=== PATIENT | female | born 1965 | race Caucasian/White ===

== ENCOUNTER 2018-05-01 12:22 | Emergency (ER) | payer OTHER ==
[~2018-05-01] VITALS: Ht 162.6 cm; Wt 69.6 kg
[~2018-05-01 12:22] MED LIST: CIPR-255 PO; MULT-506 PO; S-AD1TAB6 PO
[2018-05-01 12:31] VITALS: TEMP 36.6; Ht 162.6 cm; Wt 69.6 kg
[2018-05-01] MEDS ORDERED: FAMOTIDINE 20MG/5ML IV PUSH IV STA (12:48)
[2018-05-01] MEDS ORDERED: ONDANSETRON INJ 2 MG/ML 2 ML VIAL IV STA (12:48)
[2018-05-01] MEDS ORDERED: SODIUM CHLORIDE 0.9% 1000ML 1,000 ML IV STA (12:48)
[2018-05-01 13:03] LABS: BASO % 0.1 %; BASO ABS # 0.01 K/uL (0-0.2); EOS % 1.2 %; HEMATOCRIT 38.6 % (37-47); HEMOGLOBIN 12.9 g/dL (12.0-16.0); IG# 0.01 K/uL (0.00-0.02); MEAN CELL VOLUME 95.1 fL (80-100); MEAN CORPUSCULAR HEMOGLOBIN 31.8 pg (25-34); MEAN CORPUSCULAR HGB CONC 33.4 g/dl (32-36); MEAN PLATELET VOLUME 9.8 fL (7.4-10.4); MONO % 8.7 %; MONO ABS # 0.75 K/uL (0.11-0.59); NEUT % 67.9 %; NEUT ABS # 5.87 K/uL (1.4-6.5); PLATELET COUNT 289 K/uL (130-400); RED CELL DISTRIBUTION WIDTH CV 13.5 % (11.5-14.5); RED CELL DISTRIBUTION WIDTH SD 46.9 fL (36.4-46.3); WHITE BLOOD COUNT 8.64 K/uL (4.8-10.8)
[2018-05-01 13:43] LABS: ALBUMIN 3.9 gm/dl (3.4-5.0); CALCIUM 9.2 mg/dl (8.5-10.1); CREATININE 0.88 mg/dl (0.60-1.20); POTASSIUM 4.2 mmol/L (3.5-5.1); TOTAL PROTEIN 7.2 gm/dl (6.4-8.2)
[2018-05-01] MEDS ORDERED: GLUC10007 PO (14:02)
[2018-05-01] MEDS ORDERED: OPTIRAY 320 IV PRN (14:45)
--- NOTE | 2018-05-01 16:10 | DIAGNOSTIC IMAGING REPORT ---
ABD/PELVIS IV AND ORAL CONT CT DOSE: 500.75 mGycm HISTORY: Pain ABDOMINAL PAIN/GI TECHNIQUE: Multiaxial CT images of the abdomen and pelvis were performed following the use of intravenous and oral contrast. A dose lowering technique was utilized adhering to the principles of ALARA. COMPARISON STUDY: 04/21/2015 FINDINGS: Chronic fibrotic scarring and bibasilar atelectatic change. Liver spleen and pancreas are uniform. Kidneys negative for hydronephrosis. Gallbladder is negative for distention. Bowel pattern suggests several slightly distended fluid-filled loops of small bowel. There is circumferential wall thickening of the distal aspect of the ileum/terminal ileum. There is trace amount of infiltrative changes surrounding fat. Visualized components of the appendix are unremarkable. No evidence for abscess collection or obstruction. IMPRESSION: 1. Circumferential wall thickening of the distal and terminal ileum with mild infiltrative change in adjacent fat. 2. Moderate reactive ileus. 3. Appearance suggests a nonspecific enteritis versus small bowel inflammatory change. 4. Visualized components of the appendix are unremarkable. The above report was generated using voice recognition software. It may contain grammatical, syntax or spelling errors. Electronically signed by: Wojciech Saavedra M.D. 05/01/2018 4:09 PM Dictated Date/Time: 05/01/2018 4:01 PM
[2018-05-01 16:57] VITALS: BP 127/75; PULSE 60; O2SAT 97
--- NOTE | 2018-05-01 19:57 | EMERGENCY ROOM VISIT NOTE ---
History First contact with patient: 12:35 Chief Complaint: ABDOMINAL PAIN Stated Complaint: STOMACH PAIN History of Present Illness The patient is a 52 year old female who presents to the Emergency Room with complaints of generalized epigastric pain radiating downward into the central and lower abdominal region. The patient reports that her pain started around 7 AM this morning, and reports that it is worsening. She reports that the pain comes in waves. She has had mild nausea without vomiting. The patient reports that she had a bowel obstruction 3 years ago. She was admitted to our facility , and did not require any surgical intervention. Shortly after her discharge, she did have a colonoscopy that was normal. The patient has had no abdominal pain since her admission. The patient reports that she has been increasing vegetables in her diet lately. She does report a moderate amount of alcohol consumption 2 days ago. She denies any significant caffeine or NSAIDs use, drinking at most 1 cup of coffee daily. She did take some ibuprofen last night because of her pain without any relief. The patient has not had any recent change in color or appearance of her stools. She denies any urinary symptoms. The pain does not radiate into the back, chest, shoulder or neck. She denies any chest pain or shortness of breath. She has no alleviating or aggravating factors for her pain, and rates her discomfort a 6 out of 10. Review of Systems HEENT: Denies dizziness, visual problems, hearing loss, tinnitus. Denies difficulty swallowing or oral lesions. PULMONARY: Denies cough, shortness of breath, sputum production or hemoptysis. CARDIOVASCULAR: Denies chest pain, palpitations, dyspnea on exertion, orthopnea or peripheral edema. GASTROINTESTINAL: Denies diarrhea, constipation or vomiting, otherwise see HPI. GENITOURINARY: Denies dysuria, frequency, urgency or nocturia. NEUROLOGIC: Denies history of epilepsy, CVA, TIA or chronic headaches. MUSCULOSKELETAL: Denies history of joint tenderness/swelling. SKIN: Denies rashes or lesions. PSYCHIATRIC: Denies history of depression or mental illness. ENDOCRINE: Denies history of diabetes or thyroid disorders. Past Medical/Surgical History Medical Problems: (1) No Known Active Medical Problems Family History FH: cancer FH: heart disease FH: lung disease FHx: diabetes mellitus FHx: diverticulitis Social History Smoking Status: Current Some Day Smoker Alcohol Use: occasionally Marital Status: Housing Status: lives with significant other Occupation Status: employed Current/Historical Medications Scheduled Glucosamine Sulfate (Glucosamine), 1,000 MG PO QD Multivitamin (Multivitamin), 1 TAB PO DAILY Physical Exam Vital Signs Date Time Temp Pulse Resp B/P (MAP) Pulse Ox O2 Delivery O2 Flow Rate FiO2 05/01/18 16:57 60 18 127/75 97 05/01/18 15:29 62 18 98/54 96 Room Air 05/01/18 14:05 60 20 107/57 100 Room Air 05/01/18 12:31 36.6 96 22 108/77 98 Room Air Physical Exam CONSTITUTIONAL: Healthy and well nourished. Alert and oriented X 3 with positive affect. Patient does not appear in any acute distress on exam. HEENT: Normocephalic, atraumatic. Pupils equal, round and reactive. No scleral icterus or conjunctival injection/pallor. NECK: Full active range of motion without discomfort. No JVD or carotid bruits. RESPIRATORY: Clear to auscultation bilaterally with no wheezing, crackles, rhonchi or stridor. CARDIOVASCULAR: Regular rate and rhythm with no murmurs, rubs or gallops. GASTROINTESTINAL: Bowel sounds present in all quadrants. Patient has mild epigastric tenderness to palpation. Negative Treadwell sign. No obvious hepatosplenomegaly. No abdominal rigidity, guarding or rebound. Negative McBurney's point tenderness. No focal left lower quadrant tenderness to palpation. Negative CVA tenderness. MUSCULOSKELETAL: Full range of motion of all joints without discomfort. INTEGUMENTARY: No rash or other significant dermatologic conditions noted. HEMATOLOGIC: No ecchymosis or petechiae noted. NEUROLOGIC: No focal neurologic deficits noted. Medical Decision & Procedures ER Provider Diagnostic Interpretation: Enhanced CT of the abdomen and pelvis shows an enteritis without evidence for obstruction. Radiologist report is as follows: ABD/PELVIS IV AND ORAL CONT CT DOSE: 500.75 mGycm HISTORY: Pain ABDOMINAL PAIN/GI TECHNIQUE: Multiaxial CT images of the abdomen and pelvis were performed following the use of intravenous and oral contrast. A dose lowering technique was utilized adhering to the principles of ALARA. COMPARISON STUDY: 04/21/2015 FINDINGS: Chronic fibrotic scarring and bibasilar atelectatic change. Liver spleen and pancreas are uniform. Kidneys negative for hydronephrosis. Gallbladder is negative for distention. Bowel pattern suggests several slightly distended fluid-filled loops of small bowel. There is circumferential wall thickening of the distal aspect of the ileum/terminal ileum. There is trace amount of infiltrative changes surrounding fat. Visualized components of the appendix are unremarkable. No evidence for abscess collection or obstruction. IMPRESSION: 1. Circumferential wall thickening of the distal and terminal ileum with mild infiltrative change in adjacent fat. 2. Moderate reactive ileus. 3. Appearance suggests a nonspecific enteritis versus small bowel inflammatory change. 4. Visualized components of the appendix are unremarkable. Laboratory Results 05/01/18 12:55 Red Blood Count 4.06, Mean Corpuscular Volume 95.1, Mean Corpuscular Hemoglobin 31.8, Mean Corpuscular Hemoglobin Concent 33.4, Mean Platelet Volume 9.8, Neutrophils (%) (Auto) 67.9, Lymphocytes (%) (Auto) 22.0, Monocytes (%) (Auto) 8.7, Eosinophils (%) (Auto) 1.2, Basophils (%) (Auto) 0.1, Neutrophils # (Auto) 5.87, Lymphocytes # (Auto) 1.90, Monocytes # (Auto) 0.75, Eosinophils # (Auto) 0.10, Basophils # (Auto) 0.01 05/01/18 12:55 Test 05/01/18 12:40 05/01/18 12:55 Urine Color YELLOW Urine Appearance CLEAR (CLEAR) Urine pH 5.0 (4.5-7.5) Urine Specific [place] 1.008 (1.000-1.030) Urine Protein NEG (NEG) Urine Glucose (UA) NEG (NEG) Urine Ketones NEG (NEG) Urine Occult Blood NEG (NEG) Urine Nitrite NEG (NEG) Urine Bilirubin NEG (NEG) Urine Urobilinogen NEG (NEG) Urine Leukocyte Esterase NEG (NEG) White Blood Count 8.64 K/uL (4.8-10.8) Red Blood Count 4.06 M/uL (4.2-5.4) Hemoglobin 12.9 g/dL (12.0-16.0) Hematocrit 38.6 % (37-47) Mean Corpuscular Volume 95.1 fL (80-100) Mean Corpuscular Hemoglobin 31.8 pg (25-34) Mean Corpuscular Hemoglobin Concent 33.4 g/dl (32-36) Platelet Count 289 K/uL (130-400) Mean Platelet Volume 9.8 fL (7.4-10.4) Neutrophils (%) (Auto) 67.9 % Lymphocytes (%) (Auto) 22.0 % Monocytes (%) (Auto) 8.7 % Eosinophils (%) (Auto) 1.2 % Basophils (%) (Auto) 0.1 % Neutrophils # (Auto) 5.87 K/uL (1.4-6.5) Lymphocytes # (Auto) 1.90 K/uL (1.2-3.4) Monocytes # (Auto) 0.75 K/uL (0.11-0.59) Eosinophils # (Auto) 0.10 K/uL (0-0.5) Basophils # (Auto) 0.01 K/uL (0-0.2) RDW Standard Deviation 46.9 fL (36.4-46.3) RDW Coefficient of Variation 13.5 % (11.5-14.5) Immature Granulocyte % (Auto) 0.1 % Immature Granulocyte # (Auto) 0.01 K/uL (0.00-0.02) Anion Gap 4.0 mmol/L (3-11) Est Creatinine Clear Calc Drug Dose 70.0 ml/min Estimated GFR () 86.3 Estimated GFR (Non- 74.5 BUN/Creatinine Ratio 15.3 (10-20) Calcium Level 9.2 mg/dl (8.5-10.1) Total Bilirubin 0.6 mg/dl (0.2-1) Direct Bilirubin 0.1 mg/dl (0-0.2) Aspartate Amino Transf (AST/SGOT) 14 U/L (15-37) Alanine Aminotransferase (ALT/SGPT) 18 U/L (12-78) Alkaline Phosphatase 53 U/L (45-117) Total Protein 7.2 gm/dl (6.4-8.2) Albumin 3.9 gm/dl (3.4-5.0) Lipase 584 U/L (73-393) The above labs were reviewed. Urinalysis is normal. CBC, partial renal profile and LFTs are also normal. Lipase is mildly elevated at 584. Medications Administered Medications (Trade) Dose Ordered Sig/Alexandrea Route Start Time Stop Time Status Last Admin Dose Admin Sodium Chloride 1,000 ml @ 999 mls/hr Q1H1M STAT IV 05/01/18 12:48 05/01/18 13:48 DC 05/01/18 13:05 999 MLS/HR Ondansetron HCl (Zofran Inj) 4 mg NOW STAT IV 05/01/18 12:48 05/01/18 12:51 DC 05/01/18 13:05 4 MG Famotidine (Pepcid 20mg Iv Push) 20 mg ONE STAT IV 05/01/18 12:48 05/01/18 12:51 DC 05/01/18 13:05 20 MG Procedure 1. IV hydration: The patient was administered a normal saline 1 L bolus 2. IV medications: Zofran 4 mg IVP ED Course Patient history and physical exam were performed. Nurse's notes were reviewed. Vital signs were reviewed and were normal. Patient does not appear in any acute distress on my exam. I also reviewed documentation from the patient's admission to our facility in April 2015 when she was admitted for possible small bowel obstruction. Her CT at that time was concerning for distal small bowel ischemia. The patient was observed for 48 hours with resolution of symptoms. He was treated with Cipro and Flagyl antibiotics at the time of discharge. As indicated in HPI, the patient reports that she did have a follow- up colonoscopy that was normal. IV access was established today, and labs were drawn. The patient was hydrated with normal saline, and received IV Zofran for nausea. She refused any analgesics. Labs were reviewed and were grossly normal except for a mildly elevated lipase. Repeat enhanced CT of the abdomen and pelvis shows evidence for a reactive ileus. No obstruction noted. The patient reported complete resolution of her symptoms upon reevaluation. She thought that her symptoms may be secondary to dehydration. The patient reports that her last bowel movement was last evening. I did encourage the patient to follow-up with her information and data architect analyst for further reevaluation given her abnormal CT findings. She may require a repeat colonoscopy study. She was instructed to return to the emergency department for any progressively worsening pain, fever, persistent vomiting or other concerning symptoms. The patient was happy with plan of care, and voiced understanding of all discharge instructions. She refused any prescription analgesics or antiemetics at the time of discharge. The case was also discussed with Dr. Arias, ED attending physician, who agrees with workup and plan of care. Medical Decision Patient presents with complaint of abdominal pain. She does have a prior history of small bowel obstruction with possible ischemic changes. She was in the hospital for several days with complete resolution of symptoms. She did have a subsequent follow-up colonoscopy that was normal. This was 3 years ago. She has had no intermittent pain since that time. Workup today shows a mildly elevated lipase, otherwise labs are not suggestive of hepatitis, cholecystitis or UTI. Examination is not consistent with acute appendicitis, peritonitis or pyelonephritis. I do not suspect acute cardiopulmonary etiology. Peptic ulcer disease or gastritis is certainly possible, however the patient does not have any risk factors. At this point I feel that the patient is safe for outpatient management. She was instructed to return for worsening symptoms which could indicate a recurrent obstructive process. The patient does not have any CT findings consistent with acute pancreatitis, and only has a mild elevation of her lipase. [place] Drug Monitoring Program Search Results: patient reviewed within database, no issues identified Medication Reconcilliation Current Medication List: was personally reviewed by me Blood Pressure Screening Patient's blood pressure: Normal blood pressure Impression Primary Impression: Ileus Additional Impression: Elevated lipase Departure Information Referrals No Doctor, Assigned (PCP) Patient Instructions My [facility] Problem Qualifiers
== END 2018-05-01 17:14 | disposition home or self-care (01) ==
LOC: C.EDB 12:23 → C.EDC 17:14
DX: K56.7 Ileus, unspecified (principal); R74.8 Abnormal levels of other serum enzymes; Z80.9 Family history of malignant neoplasm, unspecified; Z83.6 Family history of other diseases of the respiratory system; Z83.3 Family history of diabetes mellitus; F17.210 Nicotine dependence, cigarettes, uncomplicated; Z79.899 Other long term (current) drug therapy